=== PATIENT | male | born 1995 | race Native Hawaiian/Other Pacific Islander ===

== ENCOUNTER 2017-02-14 11:50 | Emergency (ER) | payer OTHER ==
[2017-02-14 12:00] VITALS: BP 117/92; PULSE 133; RESP 20; TEMP 98.4; O2SAT 98; BMI 18.2
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
== END 2017-02-14 13:44 | disposition home or self-care (01) ==
LOC: ED 11:50
DX: S00.83XA Contusion of other part of head, initial encounter (principal); Y04.0XXA Assault by unarmed brawl or fight, initial encounter; Y92.410 Unspecified street and highway as the place of occurrence of the external cause